=== PATIENT | female | born 1970 | race African-American/Black ===

== ENCOUNTER → 2017-12-22 | Day surgery (SDC) | payer SELFPAY ==
[~2017-12-22] VITALS: Ht 162.6 cm; Wt 94.3 kg
[~2017-12-22] MED LIST: APRISO0.375 G1 PO; CALCIUM 500 +1 EAC5 PO; MULTIVITAMINS1 EAC9 PO; PORTIA-28 TABL1 EACH PO; ZYRTEC10 M6 PO
--- NOTE | 2017-12-29 08:57 | Operative Report ---
Operative/Inv Procedure Report Surgery Date: 12/22/17 Name of Procedure: Liposuction trunk fat grafting to buttocks bilateral mastopexy Pre-Operative Diagnosis: Breast ptosis lipodystrophy trunk Post-Operative Diagnosis: Same Estimated Blood Loss: scant (200) Surgeon/Business Proposal Rep: Bubba Yang MD Anesthesia: general endotracheal tube Operative/Procedure Note Note: This represents a dictation on 12 29 following report there was areas in the original dictation. 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 We have discussed and she has accepted the procedures consisting of a bilateral breast lift liposuction of the anterior abdominal wall despite excess skin liposuction of the low back despite excess above it that will not be treated and fat grafting to the buttock. She was given a SPS informed consents and we have discussed them. She has no questions regarding them today except some general questions which were answered during the markings. The patient was marked in the standing position for a ca pattern mastopexy liposuction the abdominal wall liposuction of the low back fat grafting to the buttock. Danger area was marked on the buttock she signed informed consent and was then taken to the operating room. She was placed supine on the table. Venodyne boots were placed antibiotics given general anesthesia established. Chest abdomen prepped and draped in usual sterile fashion. Bilateral breast lift was performed by de-epithelializing a ca pattern technique. She was put in the sitting position to assess for symmetry which of note was marked with ink with a tape measure in the standing position. 3 layer closure was then carried out. Attention was then turned to the abdominal wall where tumescent fluid was placed. Small stab incisions were used and the patient was put in the flexed position to increase abdominal wall resistance and appropriate angle. Two-handed technique was used with the dominant hand. Incisions were closed in layers. The patient was then put in the prone position and appropriately padded. After prep and drape liposuction was carried out of the waist without additional charge. Markings on the buttock were reinforced and through stab incisions the fat was placed in each buttock in the subcutaneous layer. Incisions closed in layers and an abdominal binder was placed.
== END ==
LOC: STS 01:54
DX: Z41.1 Encounter for cosmetic surgery (principal); N64.81 Ptosis of breast; E65 Localized adiposity; E66.9 Obesity, unspecified; Z68.35 Body mass index [BMI] 35.0-35.9, adult; K51.90 Ulcerative colitis, unspecified, without complications; I10 Essential (primary) hypertension
CPT/HCPCS: 81025; J0131; J0171; J0690; J2001; J2250; J2405; J3490; Q9968